=== PATIENT | female | born 1980 | race Caucasian/White ===

== ENCOUNTER 2020-11-21 13:19 | Emergency (ER) | payer OTHER ==
--- NOTE | 2020-11-21 14:03 | ED Physician Documentation ---
PD HPI FOCAL NEURO - Stated complaint Stated Complaint: RT FACE PX/VISION LOSS - Chief complaint Chief Complaint: Neuro - History obtained from History obtained from: Patient - Additional information Additional information: 40-year-old woman with history of migraines and poor vision and a lazy eye on the left felt body aches on the right side last night and over the last 24 hours has had episodic intermittent complete blindness in the right eye. She states that basically will happen if she will blink and when she opens her eyes she cannot see anything in the right eye, it is completely black. Then after 15 seconds to 2 minutes depending on the episode it slowly comes back first with central clearing. There is no amaurosis fugax described. Review of Systems Ten Systems: 10 systems reviewed and negative Constitutional: reports: Reviewed and negative Nose: reports: Reviewed and negative Throat: reports: Reviewed and negative PD PAST MEDICAL HISTORY - Allergies Allergies/Adverse Reactions: Allergies Allergy/AdvReac Type Severity Reaction Status Date / Time No Known Drug Allergies Allergy Verified 11/21/20 13:39 PD ED PE NORMAL - Vitals Vital signs reviewed: Yes - General General: Alert and oriented X 3, No acute distress - HEENT HEENT: PERRL, EOMI - Neck Neck: Supple, no meningeal sign, No bony TTP - Cardiac Cardiac: RRR, No murmur - Respiratory Respiratory: No respiratory distress, Clear bilaterally - Neuro Neuro: Alert and oriented X 3, dean of admissions 2-12 intact, No motor deficit, No sensory d eficit, Normal speech Eye Opening: Spontaneous Motor: Obeys Commands Verbal: Oriented GCS Score: 15 Results - Vitals Vitals: Vital Signs - 24 hr 11/21/20 13:35 Temperature 36.9 C Heart Rate 72 Respiratory 15 Rate Blood Pressure 166/78 H O2 Saturation 99 Oxygen O2 Source Room air PD MEDICAL DECISION MAKING - ED course ED course: 40-year-old woman with episodic monocular blindness. It is the entirety of her vision so pathology would have to be anterior to the optic chiasm. Intermittent nature and frequency as well as the short timeframes that it lasts for are not particularly consistent with TIAs. Could be migrainous, but no headache but that does not rule that out. CT angiography of the head and neck was normal without vascular issue. No episodes for the last 6 hours, close follow-up with neuro-ophthalmology if symptoms persist was advised. Departure - Departure Disposition: 01 Home, Self Care Clinical Impression: Transient blindness of right eye Condition: Good Record reviewed to determine appropriate education?: Yes Comments: Seen today for episodic transient blindness of the right eye, your exam at this point is normal except for your lazy eye and CT angiography of the head and neck were unremarkable. Given the frequency of the episodes I truly doubt TIA or other Vascular issue. Could be migrainous, but if you continue to have episodes I think it would be reasonable to see a neuro-human resources benefits specialist. The closest is [facility] in [place], the phone numbers [phone].
[2020-11-21] MEDS ORDERED: IOPAMIDOL-300 50 ML VIAL ONE (14:21)
[2020-11-21] MEDS ORDERED: IOPAMIDOL-300 50 ML VIAL IVP ONE (14:46)
--- NOTE | 2020-11-21 14:54 | CT Report ---
PROCEDURE: ANGIO HEAD W/WO INDICATIONS: episodic blindness R eye CONTRAST: IV CONTRAST: Isovue 300 ml: 80 PO CONTRAST: *NO PO CONTRAST TECHNIQUE: Precontrast 4.5 mm thick angled axial sections acquired from the foramen magnum to the vertex. Afte r the administration of intravenous contrast, 1 mm thick sections acquired through the [place] of [place] is. Postcontrast 4.5 mm thick sections then re-acquired from the foramen magnum to the vertex. 3-di mensional qlpmren-yvlqnbooy-suvdfvmqop (MIP) and/or volume rendering reformats were acquired of the c entral intracranial vasculature. For radiation dose reduction, the following was used: automated ex posure control, adjustment of mA and/or kV according to patient size. COMPARISON: None FINDINGS: Image quality: Excellent. Anterior circulation: Intracranial internal carotid arteries are normal in size and flow. The flow within the paired anterior cerebral arteries is normal and symmetric. The flow within the middle cer ebral arteries is normal and symmetric. The anterior communicating artery is seen. No aneurysms are seen. Posterior circulation: Visualized portions of the vertebral arteries demonstrate normal caliber, and join to form a normal appearing basilar artery. Flow within the posterior cerebral arteries is norm al and symmetric. No aneurysms are seen. CSF spaces: Ventricles are normal in size and shape. Basal cisterns are patent. No extra-axial flu id collections. Brain: No midline shift. No intracranial bleeds or masses. [place]-white matter interface appears int act. Skull and face: Calvarium and facial bones appear intact, without suspicious lesions. Sinuses: Visualized sinuses and mastoids are clear. IMPRESSION: No acute process involving the arterial tree of the head. No acute intracranial abnormality. Reviewed by: Jairo Wilson MD on 11/21/2020 2:53 PM PDT Approved by: Jairo Wilson MD on 11/21/2020 2:53 PM PDT Station ID: [id number]
--- NOTE | 2020-11-21 14:56 | CT Report ---
PROCEDURE: ANGIO NECK W INDICATIONS: episodic blindness R eye CONTRAST: IV CONTRAST: Isovue 300 ml: 80 PO CONTRAST: *NO PO CONTRAST TECHNIQUE: After the administration of intravenous contrast, 1.5 mm axial sections acquired from the aortic arch to the [place] of [place]. Coronal 3-D maximum intensity projection (MIP) and/or volume rendering ref ormats were then performed. For radiation dose reduction, the following was used: automated exposur e control, adjustment of mA and/or kV according to patient size. COMPARISON: None. FINDINGS: Image quality: Excellent. Carotid system: The great vessels demonstrate a conventional anatomy as they arise from the aortic a [facility]. The origins of the common carotid arteries appear patent. The common carotid arteries demonstr ate normal calibers and courses. The bifurcation regions appear normal bilaterally. Mild, roughly 2 0% origin stenosis of the bilateral internal carotid arteries. The internal carotid arteries demonstr ate otherwise normal caliber and course. Posterior circulation: The origins of the vertebral arteries appear patent. The more superior porti ons of the vertebral arteries demonstrate normal course and caliber. They join to form a normal appe aring basilar artery. Soft tissues: Visualized neck soft tissues demonstrate no suspicious abnormalities. The thyroid is normal in size and there are no incidental findings. Bones: No suspicious bony lesions. Visualized cervical spine appears normally aligned. IMPRESSION: 1. No acute process involving the arterial tree of the neck. 2. Mild bilateral internal carotid artery origin stenosis. 3. Patent bilateral vertebral arteries. The estimate of stenosis included in the report of the imaging study was calculated using the NASCET method CLINICAL RECOMMENDATION STATEMENTS: In patients <35 years with an ITN detected on CT, MRI, or extrathyroidal ultrasound, the Committee re commends further evaluation with dedicated thyroid ultrasound if the nodule is ?1 cm and has no suspi cious imaging features, and if the patient has normal life expectancy. In patients ?35 years with an ITN detected on CT, MRI, or extrathyroidal ultrasound, the Committee re commends further evaluation with dedicated thyroid ultrasound if the nodule is ?1.5 cm and has no haris picious imaging features, and if the patient has normal life expectancy. (ACR, 2014) Reviewed by: Jairo Wilson MD on 11/21/2020 2:54 PM PDT Approved by: Jairo Wilson MD on 11/21/2020 2:54 PM PDT Station ID: [id number]
[2020-11-21 15:46] VITALS: BP 160/90
== END 2020-11-21 15:46 | disposition home or self-care (01) ==
LOC: ED 13:19
DX: H53.121 Transient visual loss, right eye (principal)
CPT/HCPCS: 70496; 70498; 99283; 99284; Q9967